=== PATIENT | male | born 1960 | race Caucasian/White ===

== ENCOUNTER 2019-05-04 14:31 | Emergency (ER) | payer MEDICAID ==
[~2019-05-04] VITALS: Ht 175.3 cm; Wt 86.4 kg
[2019-05-04 14:35] VITALS: Ht 175.3 cm; Wt 86.4 kg
[2019-05-04] MEDS ORDERED: BENZTROPINE MESY1 MG PO (14:40)
[2019-05-04] MEDS ORDERED: OS-CAL500 MG PO (14:41)
[2019-05-04] MEDS ORDERED: CALCIUM 600 +1 EAC3 PO (14:42)
[2019-05-04] MEDS ORDERED: GEODON20 MG PO (14:43)
[2019-05-04] MEDS ORDERED: DEPAKOTE500 MG PO (14:43)
[2019-05-04] MEDS ORDERED: ULTRAM50 MG PO (14:44)
[2019-05-04] MEDS ORDERED: ATIVAN1 MG PO (14:44)
[2019-05-04] MEDS ORDERED: RISPERDAL3 MG PO (14:44)
[2019-05-04] MEDS ORDERED: SEROQUEL300 MG PO (14:44)
[2019-05-04] MEDS ORDERED: TRAZODONE HCL150 MG PO (14:45)
[2019-05-04 15:07] LABS: APPEARANCE CLEAR (CLEAR); BILIRUBIN NEGATIVE (NEGATIVE); COLOR YELLOW (YELLOW); GLUCOSE NEGATIVE (NEGATIVE); KETONE NEGATIVE (NEGATIVE); NITRITE NEGATIVE (NEGATIVE); PROTEIN NEGATIVE (NEGATIVE); UROBILINOGEN NORMAL (NORMAL)
[2019-05-04 15:13] LABS: BASOPHILS 0.2 % (0-2); EOSINOPHILS 2.4 % (0-7); IMMATURE GRANULOCYTES 0.2 % (0-5); LYMPHOCYTES 35.2 % (15-50); MCH 31.3 pg (26.0-34.0); MCHC 34.9 g/dL (31.0-37.0); MCV 89.8 fL (80.0-100.0); MEAN PLATELET VOLUME 10.3 fL (7.4-10.4); MONOCYTES 7.6 % (2-11); NEUTROPHILS 54.4 % (40-80); PLATELET COUNT 212 10x3/uL (130-400); RBC 4.79 10x6/uL (4.20-6.10); RDW 13.5 % (11.5-14.5); WBC 6.3 10x3/uL (4.8-10.8)
[2019-05-04 15:16] LABS: UDS - AMPHET NEGATIVE QUAL (NEGATIVE); UDS - BARB NEGATIVE QUAL (NEGATIVE); UDS - BENZO NEGATIVE QUAL (NEGATIVE); UDS - COCAINE NEGATIVE QUAL (NEGATIVE); UDS - OPIATE NEGATIVE QUAL (NEGATIVE); UDS - PCP NEGATIVE QUAL (NEGATIVE); UDS - THC NEGATIVE QUAL (NEGATIVE)
--- NOTE | 2019-05-04 15:24 | NUR ---
DR. MUNSON NOTIFIED AND 1:1 SITTER OBSERVATION ORDERED. SITTER AT BEDSIDE. NOTIFIED CHARGE NURSE AND ATTENDING IN REGARDS TO ASSESSMENT FINDINGS. RESOURCES GIVEN TO PT AND SAFETY PLAN INTIATATED.
[2019-05-04 15:27] LABS: ALBUMIN 3.6 g/dL (3.4-5.0); ALKALINE PHOSPHATASE 49 U/L (46-116); ALT (SGPT) 30 U/L (10-68); BILIRUBIN - TOTAL 0.41 mg/dL (0.2-1.3); CALC OSMOLALITY 286 mosm/kg (275-300); CALCIUM 9.4 mg/dL (8.5-10.1); CARBON DIOXIDE 33.1 mmol/L (21.0-32.0); CHLORIDE - SERUM 106 mmol/L (98-107); CREATININE - SERUM 0.8 mg/dL (0.6-1.3); GLUCOSE 109 mg/dL (74-106); POTASSIUM - SERUM 4.2 mmol/L (3.5-5.1); PROTEIN - SERUM 7.5 g/dL (6.4-8.2); SODIUM 143 mmol/L (136-145); UREA NITROGEN 14 mg/dL (7-18); eGFR NON AFRICAN AMERICAN > 90 mL/min (90-120)
[2019-05-04 15:29] LABS: MAGNESIUM - SERUM 1.9 mg/dL (1.8-2.4); VALPROIC ACID (DEPAKOTE) 65.1 ug/mL (50.0-100.0)
[2019-05-04 20:00] VITALS: BP 126/74
== END 2019-05-05 00:49 ==
LOC: D.ER 14:31
PROVIDERS: Emergency Medicine
DX: F32.9 Major depressive disorder, single episode, unspecified (principal); R45.851 Suicidal ideations

== ENCOUNTER 2019-08-23 11:10 | Emergency (ER) | payer MEDICAID ==
[~2019-08-23] VITALS: Ht 175.3 cm; Wt 77.3 kg
[~2019-08-23 11:10] MED LIST: ATIVAN1 MG PO; BENZTROPINE MESY1 MG PO; CALCIUM 600 +1 EAC3 PO; DEPAKOTE500 MG PO; GEODON20 MG PO; OS-CAL500 MG PO; RISPERDAL3 MG PO; SEROQUEL300 MG PO; TRAZODONE HCL150 MG PO; ULTRAM50 MG PO
[2019-08-23 11:12] VITALS: Ht 175.3 cm; Wt 77.3 kg
[2019-08-23 11:57] LABS: APTT 29.1 SECONDS (22.8-39.4); INR 1.03 (0.85-1.17)
[2019-08-23 11:58] LABS: CALC OSMOLALITY 278 mosm/kg (275-300); CALCIUM 9.3 mg/dL (8.5-10.1); CARBON DIOXIDE 29.9 mmol/L (21.0-32.0); CHLORIDE - SERUM 101 mmol/L (98-107); CREATININE - SERUM 0.8 mg/dL (0.6-1.3); GLUCOSE 80 mg/dL (74-106); POTASSIUM - SERUM 3.8 mmol/L (3.5-5.1); SODIUM 140 mmol/L (136-145); UREA NITROGEN 15 mg/dL (7-18); eGFR NON AFRICAN AMERICAN > 90 mL/min (90-120)
[2019-08-23 12:15] LABS: ALBUMIN 3.6 g/dL (3.4-5.0); ALKALINE PHOSPHATASE 41 U/L (46-116); ALT (SGPT) 21 U/L (10-68); BILIRUBIN - TOTAL 0.75 mg/dL (0.2-1.3); CREATINE KINASE 70 UL (21-232); MAGNESIUM - SERUM 1.7 mg/dL (1.8-2.4); PROTEIN - SERUM 7.3 g/dL (6.4-8.2); THYROID STIMULATING HORMONE 1.55 uIU/mL (0.36-3.74); TROPONIN-I 0.023 ng/mL (0.000-0.060)
[2019-08-23 12:34] LABS: BASOPHILS 0.2 % (0-2); EOSINOPHILS 6.3 % (0-7); HEMATOCRIT 47.3 % (42.0-54.0); HEMOGLOBIN 16.4 g/dL (13.5-17.5); LYMPHOCYTES 44.9 % (15-50); MCH 31.7 pg (26.0-34.0); MCHC 34.7 g/dL (31.0-37.0); MCV 91.5 fL (80.0-100.0); MEAN PLATELET VOLUME 11.7 fL (7.4-10.4); MONOCYTES 12.7 % (2-11); NEUTROPHILS 35.9 % (40-80); PLATELET COUNT 180 10x3/uL (130-400); RBC 5.17 10x6/uL (4.20-6.10); RDW 14.4 % (11.5-14.5); WBC 4.9 10x3/uL (4.8-10.8)
[2019-08-23 13:21] LABS: UDS - AMPHET NEGATIVE QUAL (NEGATIVE); UDS - BARB NEGATIVE QUAL (NEGATIVE); UDS - BENZO POSITIVE QUAL (NEGATIVE); UDS - COCAINE NEGATIVE QUAL (NEGATIVE); UDS - OPIATE NEGATIVE QUAL (NEGATIVE); UDS - PCP NEGATIVE QUAL (NEGATIVE); UDS - THC NEGATIVE QUAL (NEGATIVE)
[2019-08-23 14:09] LABS: APPEARANCE HAZY (CLEAR); BILIRUBIN NEGATIVE (NEGATIVE); COLOR DK YELLOW (YELLOW); GLUCOSE NEGATIVE (NEGATIVE); KETONE LARGE mg/dL (NEGATIVE); NITRITE NEGATIVE (NEGATIVE); PROTEIN NEGATIVE (NEGATIVE); SPECIFIC GRAVITY 1.025 (1.005-1.020); WHITE CELLS - URINE RARE /hpf (NEGATIVE)
[2019-08-23 14:10] LABS: BACTERIA FEW /hpf (NEGATIVE); EPITHELIAL CELL CAST RARE /lpf (NONE SEEN); EPITHELIAL CELLS 0-5 /hpf (0-5); MUCUS <1+ /lpf (NONE SEEN)
[2019-08-23 15:55] VITALS: BP 118/77
== END 2019-08-23 15:45 | disposition home or self-care (01) ==
LOC: D.ER 11:10
PROVIDERS: Family Medicine
DX: R41.0 Disorientation, unspecified (principal)